=== PATIENT | male | born 1990 | race Two or more races ===

== ENCOUNTER 2018-11-13 19:20 | Emergency (ER) | payer OTHER ==
[~2018-11-13] VITALS: Ht 175.3 cm; Wt 74.8 kg
[2018-11-13 19:30] VITALS: BP 119/54
[2018-11-13] MEDS ORDERED: IPRATROPIUM NEB FS 0.5 MG/2.5 ML AMPUL.NEB ONE (19:59)
[2018-11-13] MEDS ORDERED: ALBUTEROL FS 2.5 MG/3 ML VIAL.NEB ONE (19:59)
[2018-11-13] MEDS ORDERED: ALBUTEROL FS 2.5 MG/3 ML VIAL.NEB NEB ONE (20:00)
[2018-11-13] MEDS ORDERED: IPRATROPIUM NEB FS 0.5 MG/2.5 ML AMPUL.NEB NEB ONE (20:00)
== END 2018-11-13 21:17 | disposition home or self-care (01) ==
LOC: ER 19:22
DX: J45.909 Unspecified asthma, uncomplicated (principal)
CPT/HCPCS: 71045-TC